=== PATIENT | female | born 2000 | race Caucasian/White ===

== ENCOUNTER 2021-12-29 09:56 | Emergency (ER) | payer SELFPAY ==
[2021-12-29] MEDS ORDERED: IBUPROFEN 200 MG TAB PO ONE (10:28)
[2021-12-29] MEDS ORDERED: IBUPROFEN 400 MG TAB ONE (10:28)
--- NOTE | 2021-12-29 12:49 | ER ---
Nurse's Notes [facility] Name: Sherin Gusman Age: 21 yrs Sex: Female : 2000 Arrival Date: 12/29/2021 Time: 09:59 Bed 11 Private MD: Diagnosis: Sprain of unspecified ligament of left ankle;Sprain of unspecified site of left knee Presentation: 12/29 10:11 Chief complaint: Patient states: L knee and L ankle pain for 1 week. L knee swelling ll1 for 3 days. Coronavirus screen: Vaccine status: Patient reports being unvaccinated. Client denies travel out of the [place] in the last 14 days. At this time, the client does not indicate any symptoms associated with coronavirus-19. Ebola Screen: Patient denies travel to an Ebola-affected area in the 21 days before illness onset. Initial Sepsis Screen: Does the patient meet any 2 criteria? HR > 90 bpm. No. Patient's initial sepsis screen is negative. Does the patient have a suspected source of infection? Yes: Bone or joint infection. Risk Assessment: Do you want to hurt yourself or someone else? Patient reports no desire to harm self or others. Onset of symptoms was December 22, 2021. 10:11 Method Of Arrival: Ambulatory ll1 10:11 Acuity: ROSIE 4 ll1 Triage Assessment: 10:12 General: Appears in no apparent distress. Behavior is cooperative, appropriate for age. ll1 Pain: Complains of pain in left leg Pain currently is 5 out of 10 on a pain scale. Quality of pain is described as aching, Aggravated by increased activity, weight bearing. Musculoskeletal: Circulation, motion, and sensation intact. Capillary refill < 3 seconds, Reports pain in left leg. 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 - Social history:: Smoking status: Reported history of juuling and/or vaping. Screenin:23 Abuse screen: Denies threats or abuse. Nutritional screening: No deficits noted. ll1 Tuberculosis screening: No symptoms or risk factors identified. Fall Risk Gait- Weak (10 pts.). Total Lee Fall Scale indicates No Risk (0-24 pts). Assessment: 11:10 General: Appears in no apparent distress. comfortable, Behavior is calm, cooperative, ss Denies fever, feeling ill, fatigue, chills. Pain: Complains of pain in left medial ankle and left knee. Neuro: Level of Consciousness is awake, alert, obeys commands, Oriented to person, place, time, situation. Cardiovascular: Capillary refill < 3 seconds is brisk in bilateral fingers. Respiratory: Airway is patent Respiratory effort is even, unlabored, Respiratory pattern is regular, symmetrical. Derm: Skin is intact, is healthy with good turgor, Skin is dry, Skin is pink, warm \T\ dry. normal. Musculoskeletal: Circulation, motion, and sensation intact. Range of motion: intact in all extremities, Swelling absent. Vital Signs: 10:11 BP 123 / 86; Pulse 100; Resp 16; Temp 98.3; Pulse Ox 99% ; Height 5 ft. 2 in. (157.48 ll1 cm); Pain 5/10; 13:00 BP 118 / 68; Pulse 88; Resp 18; Pulse Ox 100% ; kb3 ED Course: 09:59 Patient arrived in ED. rg4 10:11 Arm band placed on. ll1 10:12 Triage completed. ll1 10:15 Zachary Hernandez NP is PHCP. pm1 10:15 Zia Rodriguez MD is Attending Physician. pm1 10:23 Brianne Rader, RN is Primary Nurse. ll1 11:10 Patient placed in an exam room, on a stretcher. ss 11:47 No provider procedures requiring assistance completed. Patient did not have IV access ss during this emergency room visit. Crutch training done. Eamon wrap to left ankle Knee immobilizer applied on left knee. 11:48 Knee Left 3 View XRAY In Process Unspecified. EDMS 11:48 Ankle Left 3 View XRAY In Process Unspecified. EDMS 11:58 Primary Nurse role handed off by Brianne Rader, RN kb3 11:58 Radha Gutierrez, JAVON is Primary Nurse. kb3 12:00 Patient has correct armband on for positive identification. Bed in low position. Call kb3 light in reach. Administered Medications: 10:34 Drug: Ibuprofen 600 mg Route: PO; ll1 13:10 Follow up: Response: No adverse reaction; Pain is decreased kb3 Medication: 10:24 VIS not applicable for this client. ll1 Outcome: 12:48 Discharge ordered by MD. pm1 13:09 Discharged to home ambulatory, with crutches. kb3 13:09 Condition: stable 13:09 Discharge instructions given to patient, Instructed on discharge instructions, follow up and referral plans. medication usage, crutch walking, Demonstrated understanding of instructions, follow-up care, medications, crutch walking, Prescriptions given X 1. 13:10 Patient left the ED. kb3 Signatures: Dispatcher [employer] EDMS Evelia Lyman RN RN ss Zachary Hernandez, CUSTOMER QUALITY SPECIALIST CUSTOMER QUALITY SPECIALIST pm1 Christen Mckeon rg4 Brianne Rader RN RN ll1 Radha Gutierrez, RN RN kb3 Corrections: (The following items were deleted from the chart) 11:10 10:24 Patient has correct armband on for positive identification. Bed in low position. ss Call light in reach. 1 11:10 10:24 Cardiac monitoring not applicable on this patient. 1 ss 11:57 11:10 Reassessment: No changes from previously documented assessment. Patient and/or ss family updated on plan of care and expected duration. Pain level reassessed. Patient is alert, oriented x 3, equal unlabored respirations, skin warm/dry/pink. ss
--- NOTE | 2021-12-29 12:49 | EDPHYS ---
Physician Documentation [facility] Name: Sherin Gusman Age: 21 yrs Sex: Female : 2000 Arrival Date: 12/29/2021 Time: 09:59 Bed 11 Private MD: ED Physician Zia Rodriguez HPI: 12/29 10:20 This 21 yrs old Female presents to ER via Ambulatory with complaints of Knee Pain, pm1 Ankle Pain. 10:20 The patient presents with pain, that is acute. The complaints affect the left lateral pm1 ankle and left knee. Context: The problem was sustained at home, resulted from pain with walking down her stairs, the patient can fully bear weight, the patient is able to ambulate, Problem is a result from a previous injury: Patient reports knee injury in June of this year that she describes as her patella moving out laterally. Patient wears a knee brace when it acts up but she reports today that her knee started hurting with the change in weather and when she was walking down her flight of stairs she injured the lateral aspect of her left ankle some how. No fall or trauma. Onset: The symptoms/episode began/occurred today. Modifying factors: The symptoms are alleviated by elevating leg, the symptoms are aggravated by movement, weight bearing, bending knee. Associated signs and symptoms: Pertinent positives: swelling to knee and lateral aspect of left ankle. Treatment prior to arrival includes: no previous treatment. Severity of symptoms: in the emergency department the symptoms are actually worse. The patient has not recently seen a physician. 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 - Social history:: Smoking status: Reported history of juuling and/or vaping. ROS: 10:20 Constitutional: Negative for fever, chills, and weight loss, Cardiovascular: Negative pm1 for chest pain, palpitations, and edema, Respiratory: Negative for shortness of breath, cough, wheezing, and pleuritic chest pain. 10:20 Skin: Negative for injury, rash, and discoloration, Neuro: Negative for headache, weakness, numbness, tingling, and seizure. 10:20 MS/extremity: Positive for pain, swelling, tenderness, of the left lateral ankle and left knee, Negative for decreased range of motion, deformity. 10:20 All other systems are negative. Exam: 10:20 Constitutional: This is a well developed, well nourished patient who is awake, alert, pm1 and in no acute distress. Head/Face: Normocephalic, atraumatic. 10:20 Skin: Warm, dry with normal turgor. Normal color with no rashes, no lesions, and no evidence of cellulitis. 10:20 Cardiovascular: Exam negative for acute changes, Rate: normal, Rhythm: regular, Pulses: no pulse deficits are appreciated. 10:20 Respiratory: Exam negative for acute changes, respiratory distress, shortness of breath. 10:20 Musculoskeletal/extremity: Extremities: grossly normal except: noted in the left lateral ankle: tenderness, mild swelling, There is no evidence of decreased ROM, deformity, noted in the left knee: pain to medial aspect of knee with valgus stress test, no evidence of decreased ROM, deformity, swelling. 10:20 Neuro: Exam negative for acute changes, Orientation: is normal, Mentation: is normal, Motor: is normal, moves all fours. Vital Signs: 10:11 BP 123 / 86; Pulse 100; Resp 16; Temp 98.3; Pulse Ox 99% ; Height 5 ft. 2 in. (157.48 ll1 cm); Pain 5/10; 13:00 BP 118 / 68; Pulse 88; Resp 18; Pulse Ox 100% ; kb3 MDM: 10:20 Data reviewed: vital signs. Data interpreted: Pulse oximetry: on room air is 99 %. pm1 Interpretation: normal. 10:20 Patient medically screened. pm1 12:47 Counseling: I had a detailed discussion with the patient and/or guardian regarding: the pm1 historical points, exam findings, and any diagnostic results supporting the discharge/admit diagnosis, radiology results, the need for outpatient follow up, a orthopedic surgeon, to return to the emergency department if symptoms worsen or persist or if there are any questions or concerns that arise at home. 12/29 10: Order name: Knee Left 3 View XRAY; Complete Time: 13:09 pm1 12/29 10: Order name: Ankle Left 3 View XRAY; Complete Time: 13:09 pm1 12/29 10:20 Order name: Knee Immobilizer; Complete Time: 11:45 pm1 12/29 10:20 Order name: Crutches; Complete Time: 11:45 pm1 12/29 10:20 Order name: Eamon wrap-joint: left ankle; Complete Time: 11:45 pm1 Administered Medications: 10:34 Drug: Ibuprofen 600 mg Route: PO; ll1 13:10 Follow up: Response: No adverse reaction; Pain is decreased kb3 Disposition Summary: 12/29/21 12:48 Discharge Ordered Location: Home pm1 Problem: new pm1 Symptoms: have improved pm1 Condition: Stable pm1 Diagnosis - Sprain of unspecified ligament of left ankle pm1 - Sprain of unspecified site of left knee pm1 Followup: pm1 - With: Emergency Department - When: As needed - Reason: Worsening of condition Followup: pm1 - With: Private Physician - When: 2 - 3 days - Reason: Recheck today's complaints, Continuance of care, Re-evaluation by your physician Discharge Instructions: - Discharge Summary Sheet pm1 - Ankle Sprain pm1 - Crutch Use, Adult pm1 - Acute Knee Pain, Adult pm1 Forms: - Medication Reconciliation Form pm1 - Thank You Letter pm1 - Antibiotic Education pm1 - Prescription Opioid Use pm1 Prescriptions: - Diclofenac Sodium 75 mg Oral tablet,delayed release (DR/EC) - take 1 tablet by ORAL route 2 times per day As needed; 30 tablet; Refills: 0, pm1 Product Selection Permitted Signatures: Dispatcher [employer] Zachary Alcantar, ROSY HOT PRESS OPERATOR pm1 Brianne Rader RN RN ll1 Radha Gutierrez RN kb3
--- NOTE | 2021-12-29 13:08 | RAD REPORT ---
EXAM DESCRIPTION: RAD - Knee Left 3 View - 12/29/2021 11:46 am CLINICAL HISTORY: PAIN COMPARISON: No comparisons FINDINGS: No fracture or dislocation seen. Small suprapatellar joint effusion.
--- NOTE | 2021-12-29 13:08 | RAD REPORT ---
EXAM DESCRIPTION: RAD - Ankle Left 3 View - 12/29/2021 11:46 am CLINICAL HISTORY: PAIN COMPARISON: No comparisons FINDINGS: No bone or joint abnormality detected.
[2021-12-29 13:16] VITALS: TEMP 98.3
[2021-12-29 13:18] VITALS: BP 118/68; O2SAT 100
== END 2021-12-29 13:10 | disposition home or self-care (01) ==
LOC: ER 09:56
DX: S93.402A Sprain of unspecified ligament of left ankle, initial encounter (principal); S83.92XA Sprain of unspecified site of left knee, initial encounter
CPT/HCPCS: 99284

== ENCOUNTER 2022-05-21 22:36 | Emergency (ER) | payer SELFPAY ==
[2022-05-21 23:34] LABS: Urine Blood Negative (Negative); Urine Glucose Negative (Negative); Urine Protein Negative (Negative); Urine Specific Gravity 1.015 (1.005-1.030)
[2022-05-21] MEDS ORDERED: NA CHLORIDE 0.9% 1,000 ML ONE (23:49)
[2022-05-21] MEDS ORDERED: FENTANYL CITR 100 MCG/2 ML ONE (23:49)
[2022-05-22 00:15] LABS: Absolute Lymphocytes (CBC) 1.6 K/uL (0.7-4.9); Hematocrit 39.4 % (36.0-45.0); Lymphocytes % 14.3 % (15.3-44.8); MCV 86.7 fL (80-100); MPV 9.6 fL (7.6-11.3); RBC Red Blood Cell Count 4.55 M/uL (3.86-4.86)
[2022-05-22 00:31] LABS: Potassium 3.4 mmol/L (3.5-5.1)
[2022-05-22] MEDS ORDERED: KETOROLAC 30 MG/ML INJ ONE (00:40)
[2022-05-22 00:52] LABS: Urine Specific Gravity/Preg 1.015 (1.005-1.030)
[2022-05-22 06:54] VITALS: TEMP 98.1
[2022-05-22 06:56] VITALS: BP 125/70; O2SAT 99
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
== END 2022-05-22 01:39 | disposition home or self-care (01) ==
LOC: ER 22:36
DX: M54.9 Dorsalgia, unspecified (principal); N39.0 Urinary tract infection, site not specified; V49.9XXA Car occupant (driver) (passenger) injured in unspecified traffic accident, initial encounter
CPT/HCPCS: 36415; 70450; 71260; 72125; 74177; 80048; 81003; 81025; 82565; 85025; 86850; 86900; 86901; 96361; 96374; 96375; 99284; J3010; J7030; Q9967

== ENCOUNTER → 2023-04-07 | Emergency (ER) | payer SELFPAY ==
--- NOTE | 2023-04-07 22:44 | RAD REPORT ---
EXAM DESCRIPTION: US - Transvaginal OB - 04/07/2023 10:10 pm CLINICAL HISTORY: with vaginal bleeding COMPARISON: None. FINDINGS: The uterus measures 7 x 4 x 5 centimeters. 1.4 centimeter sac is present within the endom etrium. pole not seen. A yolk sac is not visualized Ovaries not visualized secondary to overlying bowel gas The right and left adnexa unremarkable No significant free fluid IMPRESSION: Intrauterine with an estimated gestational age 6 weeks 2 days TRISH 11/29/2023. Given the non visualization of a yolk sac/ pole this may represent a blighted ovum. However, it still may be a viable . It is recommended that patient have serial beta HCG levels and a fol lowup endovaginal sonogram in 1 week
[2023-04-07 23:06] LABS: Absolute Lymphocytes (CBC) 2.3 K/uL (0.7-4.9); MCV 87.3 fL (80-100); MPV 9.3 fL (7.6-11.3); Platelets 328 thou/uL (152-406); RBC Red Blood Cell Count 4.46 M/uL (3.86-4.86)
[2023-04-07 23:53] LABS: Potassium 3.9 mEq/L (3.5-5.1)
--- NOTE | 2023-04-08 00:11 | EDPHYS ---
Physician Documentation [facility] Name: Sherin Gusman Age: 23 yrs Sex: Female : 2000 Arrival Date: 04/07/2023 Time: 21:11 Bed 11 Private MD: ED Physician Mustapha Baron HPI: 04/07 22:52 This 23 yrs old Female presents to ER via Ambulatory with complaints of Vaginal kdr Bleeding, Pelvic Pain, Est 9 wks gestation. 22:52 Patient states that she believes she is about 9 and half weeks . Over the last kdr 3 to 4 days she has had spotting and bleeding and increasing cramping. The patient has not had any care yet. This is her first .. Onset: The symptoms/episode began/occurred gradually, 4 day(s) ago. Severity of symptoms: At their worst the symptoms were mild in the emergency department the symptoms are unchanged. The patient has not experienced similar symptoms in the past. The patient has not recently seen a physician. Historical: - Allergies: 21:39 No Known Allergies; tl4 - Home Meds: 21:39 None [Active]; tl4 - PMHx: 21:39 None; tl4 - PSHx: 21:39 None; tl4 - Immunization history:: Adult Immunizations unknown. - Social history:: Smoking status: Reported history of juuling and/or vaping. ROS: 22:52 Constitutional: Negative for fever, chills, and weight loss, Eyes: Negative for injury, kdr pain, redness, and discharge, ENT: Negative for injury, pain, and discharge, Neck: Negative for injury, pain, and swelling, Cardiovascular: Negative for chest pain, palpitations, and edema, Respiratory: Negative for shortness of breath, cough, wheezing, and pleuritic chest pain, Back: Negative for injury and pain, MS/Extremity: Negative for injury and deformity, Skin: Negative for injury, rash, and discoloration, Neuro: Negative for headache, weakness, numbness, tingling, and seizure activity. Psych: Negative for depression, anxiety, suicide ideation, homicidal ideation, and hallucinations, Allergy/Immunology: Negative for hives, rash, and allergies, Endocrine: Negative for neck swelling, polydipsia, polyuria, polyphagia, and marked weight changes, Hematologic/Lymphatic: Negative for swollen nodes, abnormal bleeding, and unusual bruising, 22:52 Abdomen/GI: Positive for abdominal pain, of the suprapubic area, Pinching and cramping, Negative for nausea, vomiting, abdominal distension, anorexia, dysphagia, hematemesis, black/tarry stool, rectal pain, rectal bleeding, 22:52 : Positive for vaginal bleeding, Exam: 22:52 Constitutional: This is a well developed, well nourished patient who is awake, alert, kdr and in no acute distress. Head/Face: Normocephalic, atraumatic. Eyes: Pupils equal round and reactive to light, extra-ocular motions intact. Lids and lashes normal. Conjunctiva and sclera are non-icteric and not injected. Cornea within normal limits. Periorbital areas with no swelling, redness, or edema. Chest/axilla: Normal chest wall appearance and motion. Nontender with no deformity. No lesions are appreciated. Cardiovascular: Regular rate and rhythm with a normal S1 and S2. No gallops, murmurs, or rubs. Normal PMI, no JVD. No pulse deficits. Respiratory: Lungs have equal breath sounds bilaterally, clear to auscultation and percussion. No rales, rhonchi or wheezes noted. No increased work of breathing, no retractions or nasal flaring. Abdomen/GI: Soft, non-tender, with normal bowel sounds. No distension or tympany. No guarding or rebound. No evidence of tenderness throughout. Back: No spinal tenderness. No costovertebral tenderness. Full range of motion. Skin: Warm, dry with normal turgor. Normal color with no rashes, no lesions, and no evidence of cellulitis. MS/ Extremity: Pulses equal, no cyanosis. Neurovascular intact. Full, normal range of motion. Neuro: Awake and alert, GCS 15, oriented to person, place, time, and situation. Cranial nerves II-XII grossly intact. Motor strength 5/5 in all extremities. Sensory grossly intact. Cerebellar exam normal. Normal gait. Psych: Awake, alert, with orientation to person, place and time. Behavior, mood, and affect are within normal limits. Vital Signs: 21:35 BP 108 / 70; Pulse 86; Resp 16; Temp 98.2; Pulse Ox 99% on R/A; Weight 47.08 kg; Height tl4 5 ft. 2 in. ; Pain 4/10; 23:50 BP 110 / 67; Pulse 100; Resp 16; Pulse Ox 100% on R/A; jb4 21:35 Body Mass Index 18.99 (47.08 kg, 157.48 cm) tl4 21:35 Pain Scale: Adult tl4 MDM: 22:52 Data reviewed: vital signs, nurses notes, lab test result(s), radiologic studies. kdr 04/08 00:10 Patient medically screened. kdr 04/07 21:45 Order name: Abo/rh Typing; Complete Time: 00: kdr 04/07 21:45 Order name: Basic Metabolic Panel; Complete Time: 00: kdr 04/07 21:45 Order name: CBC with Diff; Complete Time: 23:26 kdr 04/07 21:45 Order name: Quantitative Hcg; Complete Time: 00: kdr 04/07 21:45 Order name: Urinalysis w/ reflexes; Complete Time: 01: kdr 04/07 23:10 Order name: Test, Serum; Complete Time: 23:26 jb4 04/07 21:45 Order name: US Transvaginal Ob; Complete Time: 22:50 kdr 04/07 21:45 Order name: IV Saline Lock; Complete Time: 23:08 kdr 04/07 21:45 Order name: Labs collected and sent; Complete Time: 23:08 kdr 04/07 21:45 Order name: NPO; Complete Time: 22:12 kdr Administered Medications: No medications were administered Disposition Summary: 04/08/23 00:10 Discharge Ordered Notes: Location: Home kdr Problem: new kdr Symptoms: have improved kdr Condition: Stable kdr Diagnosis - Threatened kdr Followup: kdr - With: Private Physician - When: 2 - 3 days - Reason: If symptoms return, Further diagnostic work-up, Recheck today's complaints, Continuance of care, Re-evaluation by your physician Discharge Instructions: - Discharge Summary Sheet kdr - Threatened Miscarriage kdr Forms: - Medication Reconciliation Form kdr - Thank You Letter kdr - Patient Portal Instructions kdr - Leadership Thank You Letter kdr Signatures: Dispatcher [employer] Mustapha Weaver MD MD kdr Logda, Elie tl4
--- NOTE | 2023-04-08 00:11 | ER ---
Nurse's Notes [facility] Name: Sherin Gusman Age: 23 yrs Sex: Female : 2000 Arrival Date: 04/07/2023 Time: 21:11 Bed 11 Private MD: Diagnosis: Threatened Presentation: 04/07 21:35 Chief complaint: Patient states: Pt states she is 9.5 weeks . Pt c/o increased tl4 cramping and vaginal spotting since yesterday. Pt has not started care yet. Pt is . Coronavirus screen: Vaccine status: Patient reports being unvaccinated. At this time, the client does not indicate any symptoms associated with coronavirus-19. Ebola Screen: Patient negative for fever greater than or equal to 101.5 degrees Fahrenheit, and additional compatible Ebola Virus Disease symptoms Patient denies exposure to infectious person. Patient denies travel to an Ebola-affected area in the 21 days before illness onset. No symptoms or risks identified at this time. Initial Sepsis Screen: Does the patient meet any 2 criteria? No. Patient's initial sepsis screen is negative. Does the patient have a suspected source of infection? No. Patient's initial sepsis screen is negative. Risk Assessment: Do you want to hurt yourself or someone else? Patient reports no desire to harm self or others. Onset of symptoms was April 06, 2023. 21:35 Method Of Arrival: Ambulatory tl4 21:35 Acuity: ROSIE 3 tl4 Triage Assessment: 21:39 General: Appears in no apparent distress. Behavior is calm, cooperative. Pain: tl4 Complains of pain in abdomen. EENT: No deficits noted. No signs and/or symptoms were reported regarding the EENT system. Neuro: No deficits noted. Cardiovascular: No deficits noted. Respiratory: No deficits noted. GI: No deficits noted. No signs and/or symptoms were reported involving the gastrointestinal system. : Reports vaginal bleeding that is bright red, spotty. Historical: - Allergies: 21:39 No Known Allergies; tl4 - Home Meds: 21:39 None [Active]; tl4 - PMHx: 21:39 None; tl4 - PSHx: 21:39 None; tl4 - Immunization history:: Adult Immunizations unknown. - Social history:: Smoking status: Reported history of juuling and/or vaping. Screenin/26 01:39 [facility] ED Fall Risk Assessment (Adult) History of falling in the last 3 months, jb4 including since admission No falls in past 3 months (0 pts) Confusion or Disorientation No (0 pts). Abuse screen: Denies threats or abuse. Nutritional screening: No deficits noted. Tuberculosis screening: No symptoms or risk factors identified. Assessment: 04/07 23:50 Reassessment: Patient appears in no apparent distress at this time. Patient and/or jb4 family updated on plan of care and expected duration. Pain level reassessed. Patient is alert, oriented x 3, equal unlabored respirations, skin warm/dry/pink. 04/08 01:39 Reassessment: Patient appears in no apparent distress at this time. Patient and/or jb4 family updated on plan of care and expected duration. Pain level reassessed. Patient is alert, oriented x 3, equal unlabored respirations, skin warm/dry/pink. Vital Signs: 04/07 21:35 BP 108 / 70; Pulse 86; Resp 16; Temp 98.2; Pulse Ox 99% on R/A; Weight 47.08 kg; Height tl4 5 ft. 2 in. ; Pain 4/10; 23:50 BP 110 / 67; Pulse 100; Resp 16; Pulse Ox 100% on R/A; jb4 21:35 Body Mass Index 18.99 (47.08 kg, 157.48 cm) tl4 21:35 Pain Scale: Adult tl4 ED Course: 21:13 Patient arrived in ED. jj6 21:19 Mustapha Baron MD is Attending Physician. kdr 21:39 Triage completed. tl4 21:40 Arm band placed on Patient placed in an exam room, on a stretcher. tl4 22:12 US Transvaginal Ob In Process Unspecified. EDMS 04/08 01:39 No provider procedures requiring assistance completed. IV discontinued, intact, jb4 bleeding controlled, No redness/swelling at site. Pressure dressing applied. Administered Medications: No medications were administered Outcome: 00:10 Discharge ordered by . kdr 01:39 Discharged to home ambulatory, jb4 01:39 Condition: stable 01:39 Discharge instructions given to patient, Instructed on discharge instructions, follow up and referral plans. Demonstrated understanding of instructions, follow-up care, 01:40 Patient left the ED. jb4 Signatures: Dispatcher [employer] Mustapha Weaver MD MD kdr Donte Zhang RN RN jb4 Katy Altamirano jj6 Elie Astorga 4
[2023-04-08 01:11] LABS: Specific Gravity 1.012 (1.005-1.030); Urine Bacteria <20 /HPF (<20); Urine Bilirubin NEGATIVE (Negative); Urine Blood Trace (Negative); Urine Clarity Clear (Clear); Urine Color Light-Yellow (Yellow); Urine Glucose NEGATIVE (Negative); Urine Mucus Slight /HPF (None Seen); Urine Protein NEGATIVE (Negative); Urine RBC <5 /HPF (None Seen); Urine Urobilinogen Normal (Normal); Urine pH 7.5 (5.0-7.0)
[2023-04-08 02:35] VITALS: BP 110/67; TEMP 98.2; O2SAT 100
== END ==
LOC: ER 21:11
DX: O20.0 Threatened abortion (principal); Z3A.09 9 weeks gestation of pregnancy
CPT/HCPCS: 36415; 76817; 80048; 81001; 84702; 84703; 85025; 86900; 86901